=== PATIENT | female | born 1995 | race African-American/Black ===

== ENCOUNTER 2020-03-20 21:19 | Emergency (ER) | payer SELFPAY ==
[~2020-03-20] VITALS: Ht 162.6 cm; Wt 97.2 kg
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
[2020-03-20] MEDS ORDERED: TETANUS AND DIPHTHERIA TOX/PF 0.5 ML DISP.SYRIN. VAX IM ONE (22:30)
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
--- NOTE | 2020-03-20 23:20 | RAD ---
Exam: CT left lower extremity without contrast INDICATION: Foreign body left leg TECHNIQUE: Sequential axial images through the left lower extremity obtained without IV contrast. Sagittal and coronal reformatted images were reconstructed from the axial data and reviewed. Comparisons: Radiograph same day FINDINGS: Within the subcutaneous fat of the left lower leg at the level of the proximal tibial diaphysis there is a triangular foreign body measuring approximately 9 mm just deep to the skin surface. There is mild adjacent reticulation in the adjacent subcutaneous fat. Underlying musculature is unremarkable. Bone mineralization is normal. No acute or healed fractures. Joint spaces are well-maintained. IMPRESSION: A 9 mm triangular-shaped foreign body within the subcutaneous fat just deep to the skin surface in the lateral lower leg at the level of the proximal tibial diaphysis. Exposure: One or more of the following in the visualized dose reduction techniques were utilized for this examination: 1. Automated exposure control 2. Adjustment of the MA and/or KV according to patient size 3. Use of iterative of reconstructive technique Electronically signed by: Gadiel Sparks MD (03/20/2020 11:17 PM) [id number]
[2020-03-20] MEDS ORDERED: LIDOCAINE 2% 20 ML VIAL. ONE (23:34)
[2020-03-21] MEDS ORDERED: CEPH-264 PO (00:06)
[2020-03-21] MEDS ORDERED: HYDR-3164 PO (00:06)
[2020-03-21] MEDS ORDERED: CEPHALEXIN 250 MG CAPSULE. ONE (00:07)
[2020-03-21 00:20] VITALS: BP 119/66
[2020-03-21] MEDS ORDERED: BACITRACIN TOPICAL OINT PACKET. TP ONE (00:30)
[2020-03-21] MEDS ORDERED: CEPHALEXIN 250 MG CAPSULE. PO ONE (00:30)
[2020-03-21] MEDS ORDERED: LIDOCAINE 2% 20 ML VIAL. IJ ONE (00:30)
[2020-03-21] MEDS ORDERED: NEOMY/BACITR/POLYMYXIN OINT PACKET. TP ONE (00:30)
== END 2020-03-21 00:25 | disposition home or self-care (01) ==
LOC: ER 21:19
DX: S90.852A Superficial foreign body, left foot, initial encounter (principal); M79.672 Pain in left foot; F17.200 Nicotine dependence, unspecified, uncomplicated; E66.9 Obesity, unspecified; Z68.36 Body mass index [BMI] 36.0-36.9, adult; W45.8XXA Other foreign body or object entering through skin, initial encounter; Y93.89 Activity, other specified; Y92.89 Other specified places as the place of occurrence of the external cause; Y99.0 Civilian activity done for income or pay
CPT/HCPCS: 73590; 73700; 81025; 90471; 90714; 99284; J3490